=== PATIENT | male | born 1990 | race Caucasian/White ===

== ENCOUNTER 2020-10-28 13:46 | Inpatient (IN) | payer OTHER ==
[~2020-10-28] VITALS: Ht 188 cm; Wt 93.0 kg
[2020-10-28] MEDS ORDERED: LAMOTRIGINE100 MG (14:01)
== END 2020-10-29 13:42 | disposition home or self-care (01) | DRG 343 ==
LOC: ER 13:46 → SEC-K 21:09 → SURG 10-29 00:21
PROVIDERS: ADMIT Surgery; ATTEND Surgery
PROC: BW2110Z Computerized Tomography (CT Scan) of Abdomen and Pelvis using Low Osmolar Contrast, Unenhanced and Enhanced (ICD-10-PCS; 2020-10-28)
PROC: 0DTJ4ZZ Resection of Appendix, Percutaneous Endoscopic Approach (ICD-10-PCS; principal; 2020-10-29)
DX: K35.80 Unspecified acute appendicitis (principal); G40.909 Epilepsy, unspecified, not intractable, without status epilepticus

== ENCOUNTER → 2021-11-02 | Emergency (ER) | payer OTHER ==
[~2021-11-02] VITALS: Ht 188 cm; Wt 90.7 kg
[~2021-11-02] MED LIST: LAMOTRIGINE100 MG
== END | disposition left against medical advice (07) ==
LOC: ER 15:51
DX: S68.022A Partial traumatic metacarpophalangeal amputation of left thumb, initial encounter (principal); W45.8XXA Other foreign body or object entering through skin, initial encounter; Y93.89 Activity, other specified; Y92.89 Other specified places as the place of occurrence of the external cause; Y99.9 Unspecified external cause status; Z88.6 Allergy status to analgesic agent

== ENCOUNTER 2022-05-30 19:24 | Emergency (ER) | payer OTHER ==
[~2022-05-30] VITALS: Ht 188 cm; Wt 90.7 kg
== END 2022-05-30 22:49 | disposition home or self-care (01) ==
LOC: ER 19:24
DX: J37.0 Chronic laryngitis (principal); Z20.822 Contact with and (suspected) exposure to COVID-19; Z88.6 Allergy status to analgesic agent

== ENCOUNTER 2023-10-12 16:42 | Inpatient (IN) | payer OTHER ==
[~2023-10-12] VITALS: Ht 188 cm; Wt 90.7 kg
--- NOTE | 2023-10-12 17:04 | NUR ---
PTE ALERTA Y ORIENTADO POR NIKOLE ESFERAS REFIERE QUE HACE CHATO SEMANA ESTABA BREGANDO CON EL STARTER DE UN RAYO Y EN UN MOMENTO SINTIO DOLOR EN [place]. CUANDO SE VERIFICA EMPEZO CON UN RASH POR EL CUAL SE ATENDIO EN UN CDT POR EL CUAL LE DIERON MEDICAMENTOS, PTE TERMINA MEDICAMENTOS CLARK NO PARRA TENDIO MEJORIA.
[2023-10-12] MEDS ORDERED: VANCOMYCIN HCL 1,000 MG VIAL IV ONE (18:15)
[2023-10-12] MEDS ORDERED: 0.9 % SODIUM CHLORIDE 1,000 ML IV ONE (18:15)
--- NOTE | 2023-10-12 18:32 | NUR ---
PACIENTE EVALUADO POR QUIEN ORDENA TRATAMIENTO MEDICO, SE LE ORIENTA A PACIENTE SOBRE EL MISMO Y VERBALIZA ENTENDER, SE LE COLECTAN MUESTRAS DE LABORATORIO Y SE CANALIZA BAJO MEDIDAS ASEPTICAS, SE LE ADMINSITRAN MED CRISTINA ORDEN. PENDIENTE NOA X.
[2023-10-12 18:50] LABS: ERYTHROCYTE SEDIMENTATION RATE 12 mm/hr; HEMATOCRIT 42.4 % (39.0-48.0); HEMOGLOBIN 14.4 g/dL (13-16.00); MEAN CELL VOLUME 85.4 fL (80.0-100.00); MEAN CORPUSCULAR HGB CONC 33.9 g/dl (32.0-36.0); PLATELET COUNT 233 K/uL (150-450); RED BLOOD COUNT 4.96 M/uL (4.00-6.00); RED CELL DISTRIBUTION WIDTH 14.8 % (11.5-14.5)
[2023-10-12 19:14] LABS: PH,URINE 6.5 (5.0-8.0); URINE APPEARANCE Clear; URINE BILIRRUBIN Negative (NEGATIVE); URINE BLOOD Negative; URINE COLOR Dark Yellow; URINE GLUCOSE Negative (NEGATIVE); URINE KETONE Trace (NEGATIVE); URINE LEUKOCYTE Negative; URINE NITRATE Negative; URINE PROTEIN Trace (NEGATIVE)
[2023-10-12 19:17] LABS: URINE EPITHELIAL CELLS 3.8 uL (0.0-38.8); URINE WBC 5.8 uL (0.0-23.2)
[2023-10-12 19:19] LABS: URINE BACTERIA 1.2 uL (0.0-1933)
[2023-10-12 19:20] LABS: ALBUMIN 3.7 gm/dL (3.4-5.0); BILIRUBIN TOTAL 0.74 mg/dL (0.3-1.2); CALCIUM 8.7 mg/dL (8.5-10.1); CREATININE SERUM 1.16 mg/dL (0.70-1.30); GFR 72.96; GLOBULINA 3.7 G/DL (2.4-3.5); POTASSIUM 3.91 mEq/L (3.5-5.1); TOTAL PROTEIN 7.4 gm/dL (6.4-8.2)
[2023-10-12 19:24] LABS: C-REACTIVE PROTEIN 8.22 MG/DL (0.00-0.29)
[2023-10-12] MEDS ORDERED: ACETAMINOPHEN 500 MG GEL..CAP PO ONE (20:00)
[2023-10-12] MEDS ORDERED: MONTELUKAST SODIUM 10 MG TABLET PO SCH (22:26)
[2023-10-12] MEDS ORDERED: MORPHINE SULFATE 2 MG/ML CARTRIDGE IV PRN (22:30)
[2023-10-12] MEDS ORDERED: hydrALAZINE HCL 20 MG VIAL IV PRN (22:30)
[2023-10-12] MEDS ORDERED: ONDANSETRON HCL 4 MG in 0.9 % SODIUM CHLORIDE 50 ML IV PRN (22:30)
[2023-10-12] MEDS ORDERED: 0.9 % SODIUM CHLORIDE 1,000 ML IV SCH (22:30)
[2023-10-12] MEDS ORDERED: ACETAMINOPHEN 500 MG GEL..CAP PO PRN (22:30)
[2023-10-13] MEDS ORDERED: CLINDAMYCIN PHOSPHATE 900 MG in 0.9 % SODIUM CHLORIDE 100 ML IV SCH (01:00)
[2023-10-13 08:41] LABS: HEMOGLOBIN 14.7 g/dL (13-16.00); MEAN CELL VOLUME 86.2 fL (80.0-100.00); MEAN CORPUSCULAR HEMOGLOBIN 29.4 pg (27.00-32.0); MEAN CORPUSCULAR HGB CONC 34.1 g/dl (32.0-36.0); PLATELET COUNT 230 K/uL (150-450); RED BLOOD COUNT 4.99 M/uL (4.00-6.00); RED CELL DISTRIBUTION WIDTH 14.4 % (11.5-14.5)
[2023-10-13 08:47] LABS: INR 1.12; PARTIAL THROMBOPLASTIN TIME 33.6 SECONDS (22.0-34.0); PROTHROMBIN TIME 11.7 SECONDS (9.0-11.5)
[2023-10-13] MEDS ORDERED: FAMOTIDINE/PF 20 MG in 0.9 % SODIUM CHLORIDE 8 ML IV PUSH SCH (09:00)
[2023-10-13] MEDS ORDERED: LAMOTRIGINE 100 MG PO SCH ×2 (09:00→17:00)
[2023-10-13] MEDS ORDERED: VANCOMYCIN HCL 1,000 MG IV SCH (09:00)
[2023-10-13 09:04] LABS: ALBUMIN 3.5 gm/dL (3.4-5.0); BILIRUBIN TOTAL 1.05 mg/dL (0.3-1.2); BILIRUBIN,CONJUGATED 0.3 mg/dL (0.0-0.2); BILIRUBIN,UNCONJUGATED 0.75 mg/dL (0.0-0.6); CALCIUM 8.3 mg/dL (8.5-10.1); CHOL HDL RATIO 3.9 (0-5.0); CREATININE SERUM 0.88 mg/dL (0.70-1.30); GFR 100.36; GLOBULINA 3.5 G/DL (2.4-3.5); POTASSIUM 3.75 mEq/L (3.5-5.1)
[2023-10-13 09:05] LABS: C-REACTIVE PROTEIN 10.6 MG/DL (0.00-0.29)
[2023-10-13] MEDS ORDERED: CEFTRIAXONE SODIUM 2,000 MG in 0.9 % SODIUM CHLORIDE 100 ML IV SCH (20:37)
[2023-10-13] MEDS ORDERED: METROnidazole 500 MG TABLET PO SCH (20:41)
[2023-10-13] MEDS ORDERED: VANCOMYCIN HCL 1,250 MG in 0.9 % SODIUM CHLORIDE 250 ML IV SCH (21:00)
[2023-10-14] MEDS ORDERED: DIPHENHYDRAMINE HCL 50 MG/ML VIAL 1ML IV PRN (07:45)
[2023-10-14] MEDS ORDERED: ACETAMINOPHEN 500 MG GEL..CAP PO PRN (07:45)
[2023-10-14] MEDS ORDERED: VANCOMYCIN HCL 5 MG/ML REDILUIDO IV SCH (09:00)
[2023-10-14 22:01] LABS: URINE APPEARANCE Clear; URINE BILIRRUBIN Negative (NEGATIVE); URINE BLOOD Negative; URINE COLOR Yellow; URINE GLUCOSE Negative (NEGATIVE); URINE KETONE Negative (NEGATIVE); URINE LEUKOCYTE Negative; URINE NITRATE Negative; URINE PROTEIN Negative (NEGATIVE); URINE RBC 7.9 uL (0.0-20.8); URINE WBC 3.3 uL (0.0-23.2)
[2023-10-14 22:04] LABS: URINE BACTERIA 2.5 uL (0.0-1933)
[2023-10-16 08:23] LABS: HEMATOCRIT 37.4 % (39.0-48.0); HEMOGLOBIN 12.9 g/dL (13-16.00); MEAN CELL VOLUME 85.3 fL (80.0-100.00); MEAN CORPUSCULAR HEMOGLOBIN 29.5 pg (27.00-32.0); MEAN CORPUSCULAR HGB CONC 34.6 g/dl (32.0-36.0); PLATELET COUNT 258 K/uL (150-450); RED BLOOD COUNT 4.38 M/uL (4.00-6.00); RED CELL DISTRIBUTION WIDTH 14.9 % (11.5-14.5)
[2023-10-16 08:58] LABS: ALBUMIN 2.5 gm/dL (3.4-5.0); BILIRUBIN TOTAL 0.48 mg/dL (0.3-1.2); CALCIUM 7.6 mg/dL (8.5-10.1); CREATININE SERUM 1.04 mg/dL (0.70-1.30); GFR 82.76; GLOBULINA 3.5 G/DL (2.4-3.5); POTASSIUM 3.6 mEq/L (3.5-5.1)
[2023-10-16 09:06] LABS: C-REACTIVE PROTEIN 23.6 MG/DL (0.00-0.29)
[2023-10-16] MEDS ORDERED: FAMOtidine 20 MG TABLET PO SCH (17:00)
[2023-10-16] MEDS ORDERED: LINEZOLID 600 MG TABLET PO SCH (17:00)
[2023-10-16] MEDS ORDERED: BENZONATATE 100 MG CAPSULE PO PRN (17:45)
[2023-10-18 11:14] LABS: HEMATOCRIT 36.2 % (39.0-48.0); HEMOGLOBIN 12.4 g/dL (13-16.00); MEAN CELL VOLUME 84.9 fL (80.0-100.00); MEAN CORPUSCULAR HEMOGLOBIN 29.2 pg (27.00-32.0); MEAN CORPUSCULAR HGB CONC 34.4 g/dl (32.0-36.0); PLATELET COUNT 268 K/uL (150-450); RED BLOOD COUNT 4.26 M/uL (4.00-6.00); RED CELL DISTRIBUTION WIDTH 14.5 % (11.5-14.5)
[2023-10-19 08:25] LABS: HEMATOCRIT 35.3 % (39.0-48.0); MEAN CELL VOLUME 83.8 fL (80.0-100.00); MEAN CORPUSCULAR HGB CONC 34.1 g/dl (32.0-36.0); PLATELET COUNT 276 K/uL (150-450); RED BLOOD COUNT 4.22 M/uL (4.00-6.00); RED CELL DISTRIBUTION WIDTH 14.9 % (11.5-14.5)
[2023-10-19 09:42] LABS: MEAN CORPUSCULAR HEMOGLOBIN 28.4 pg (27.00-32.0)
[2023-10-21] MEDS ORDERED: CEFTRIAXONE SODIUM 2,000 MG VIAL IV SCH (13:35)
[2023-10-21] MEDS ORDERED: METROnidazole 500 MG TABLET PO SCH (17:00)
[2023-10-23 07:58] LABS: HEMOGLOBIN 12.9 g/dL (13-16.00); MEAN CELL VOLUME 83.8 fL (80.0-100.00); MEAN CORPUSCULAR HEMOGLOBIN 28.5 pg (27.00-32.0); PLATELET COUNT 437 K/uL (150-450); RED BLOOD COUNT 4.53 M/uL (4.00-6.00); RED CELL DISTRIBUTION WIDTH 15.3 % (11.5-14.5)
[2023-10-24 05:28] LABS: HEMATOCRIT 37.8 % (39.0-48.0); HEMOGLOBIN 13.3 g/dL (13-16.00); MEAN CELL VOLUME 84.4 fL (80.0-100.00); MEAN CORPUSCULAR HEMOGLOBIN 29.6 pg (27.00-32.0); MEAN CORPUSCULAR HGB CONC 35.1 g/dl (32.0-36.0); PLATELET COUNT 447 K/uL (150-450); RED BLOOD COUNT 4.48 M/uL (4.00-6.00); RED CELL DISTRIBUTION WIDTH 15.2 % (11.5-14.5)
[2023-10-25] MEDS ORDERED: BETAMETHASONE DIPROPIONATE TOP SCH (18:32)
[2023-10-26 08:36] LABS: HEMATOCRIT 38.9 % (39.0-48.0); HEMOGLOBIN 13.6 g/dL (13-16.00); MEAN CELL VOLUME 83.7 fL (80.0-100.00); MEAN CORPUSCULAR HEMOGLOBIN 29.1 pg (27.00-32.0); MEAN CORPUSCULAR HGB CONC 34.8 g/dl (32.0-36.0); RED BLOOD COUNT 4.66 M/uL (4.00-6.00); RED CELL DISTRIBUTION WIDTH 15.4 % (11.5-14.5)
[2023-10-26 12:47] LABS: PLATELET COUNT 543 K/uL (150-450)
[2023-10-28 08:51] LABS: PLATELET ESTIMATE INCREASED (NORMAL)
[2023-10-28 11:13] LABS: HEMATOCRIT 37.6 % (39.0-48.0); MEAN CELL VOLUME 83.8 fL (80.0-100.00); MEAN CORPUSCULAR HGB CONC 34.6 g/dl (32.0-36.0); PLATELET COUNT 515 K/uL (150-450); RED BLOOD COUNT 4.49 M/uL (4.00-6.00); RED CELL DISTRIBUTION WIDTH 15.3 % (11.5-14.5)
[2023-10-29] MEDS ORDERED: HYDROXYUREA 500 MG CAP PO SCH (09:00)
[2023-10-30 09:21] LABS: HEMOGLOBIN 13.4 g/dL (13-16.00); MEAN CELL VOLUME 85.4 fL (80.0-100.00); MEAN CORPUSCULAR HEMOGLOBIN 29.3 pg (27.00-32.0); MEAN CORPUSCULAR HGB CONC 34.3 g/dl (32.0-36.0); PLATELET COUNT 519 K/uL (150-450); RED BLOOD COUNT 4.56 M/uL (4.00-6.00); RED CELL DISTRIBUTION WIDTH 15.3 % (11.5-14.5)
[2023-10-30 13:58] LABS: CALCIUM 8.8 mg/dL (8.5-10.1); CREATININE SERUM 0.81 mg/dL (0.70-1.30); GFR 110.43; POTASSIUM 4.33 mEq/L (3.5-5.1)
[2023-11-01 08:35] LABS: HEMATOCRIT 38.8 % (39.0-48.0); HEMOGLOBIN 13.4 g/dL (13-16.00); MEAN CELL VOLUME 84.5 fL (80.0-100.00); MEAN CORPUSCULAR HEMOGLOBIN 29.1 pg (27.00-32.0); MEAN CORPUSCULAR HGB CONC 34.5 g/dl (32.0-36.0); PLATELET COUNT 477 K/uL (150-450); RED BLOOD COUNT 4.59 M/uL (4.00-6.00); RED CELL DISTRIBUTION WIDTH 15.6 % (11.5-14.5)
[2023-11-04 17:10] LABS: anti MPO AB < 0.2 units (0.0-0.9); anti pr3 < 0.2 units (0.0-0.9); c anca <1:20 titer (Neg:<1:20); p anca <1:20 titer (Neg:<1:20)
[2023-11-05 08:08] LABS: HEMATOCRIT 41.2 % (39.0-48.0); HEMOGLOBIN 14.1 g/dL (13-16.00); MEAN CELL VOLUME 86.1 fL (80.0-100.00); MEAN CORPUSCULAR HEMOGLOBIN 29.6 pg (27.00-32.0); MEAN CORPUSCULAR HGB CONC 34.3 g/dl (32.0-36.0); PLATELET COUNT 384 K/uL (150-450); RED BLOOD COUNT 4.78 M/uL (4.00-6.00); RED CELL DISTRIBUTION WIDTH 15.6 % (11.5-14.5)
== END 2023-11-05 11:03 | disposition home or self-care (01) | DRG 815 ==
LOC: ER 16:43 → SEC-K 22:46 → MEDJ 22:46
PROVIDERS: General Practice; Internal Medicine; Internal Medicine Hematology & Oncology; Student in an Organized Health Care Education/Training Program; ADMIT Internal Medicine; ATTEND Internal Medicine
PROC: 0HB6XZX Excision of Back Skin, External Approach, Diagnostic (ICD-10-PCS; principal; 2023-10-18)
PROC: 079T3ZX Drainage of Bone Marrow, Percutaneous Approach, Diagnostic (ICD-10-PCS; 2023-10-27)
PROC: 07DR3ZX Extraction of Iliac Bone Marrow, Percutaneous Approach, Diagnostic (ICD-10-PCS; 2023-10-27)
DX: D72.19 Other eosinophilia (principal); L03.312 Cellulitis of back [any part except buttock and flank]; L98.2 Febrile neutrophilic dermatosis [Sweet]; L73.8 Other specified follicular disorders; L13.8 Other specified bullous disorders; L30.8 Other specified dermatitis; L53.8 Other specified erythematous conditions

== ENCOUNTER → 2024-01-16 | Emergency (ER) | payer OTHER ==
[~2024-01-16] VITALS: Ht 188 cm; Wt 90.7 kg
[~2024-01-16] MED LIST changes: +ACETAMINOPHEN 500 MG GEL..CAP PO STA; +CLINDAMYCIN PHOSPHATE 150 MG/ML (600mg) IM STA
== END | disposition home or self-care (01) ==
LOC: ER 22:27
DX: L03.011 Cellulitis of right finger (principal); Z88.6 Allergy status to analgesic agent